=== PATIENT | male | born 1950 | race Caucasian/White ===

== ENCOUNTER 2016-10-08 08:15 | Day surgery (SDC) | payer MEDICARE ==
[~2016-10-08 08:15] MED LIST: LACTATED RINGERS 1,000 ML IV SCH
[2016-10-08] MEDS ORDERED: IV START KIT ONE (09:04)
[2016-10-08] MEDS ORDERED: LACTATED RINGERS 1,000 ML ONE (09:04)
[2016-10-08] MEDS ORDERED: FENTANYL 5 ML ONE (10:05)
[2016-10-08] MEDS ORDERED: PROPOFOL 20 ML IV ONE (10:05)
--- NOTE | 2016-10-12 12:55 | SURGPATH ---
[facility] [address] [place] [id number] Patient Name: DUKE SIMS MR#: [id number] : 1950 Gender: M Specimen #: [id number] Collected: 10/08/2016 Received: 10/09/2016 Reported: 10/12/2016 Submitting Phys: ART HANEY Copy To Phys: [facility] EREN JEAN Clinical History / Pre-Operative Diagnosis: SCREENING Specimen Source / Surgical Procedure Performed: SIGMOID POLYP AT 20 CM X2 Interpretation: SIGMOID COLON, 20 CM, POLYP, POLYPECTOMY: - HYPERPLASTIC POLYP Electronically Signed Out Wendy Oconnor M.D. Gross Description: The specimen is received in a formalin filled container labeled with the patient's name and "sigmoid polyp at 20 cm". Two polypoid red-keller biopsies are 0.3 and 0.5 cm. Totally embedded in one cassette. Cristhian Ayoub, PKobeAKobe Microscopic Description: Two fragments of colonic mucosa are seen, one of which shows a hyperplastic polyp on deeper levels. No dysplasia or horizontally oriented crypts are seen. Focal active inflammation is seen in the superficial epithelium. 1: [id number] K63.5
== END 2016-10-08 11:40 | disposition home or self-care (01) ==
LOC: SDC 08:15
PROVIDERS: ATTEND Internal Medicine Gastroenterology
PROC: 0DBN8ZX Excision of Sigmoid Colon, Via Natural or Artificial Opening Endoscopic, Diagnostic (ICD-10-PCS; principal; 2016-10-08)
DX: Z12.11 Encounter for screening for malignant neoplasm of colon (principal); D12.5 Benign neoplasm of sigmoid colon; I25.10 Atherosclerotic heart disease of native coronary artery without angina pectoris; I11.9 Hypertensive heart disease without heart failure; I50.9 Heart failure, unspecified; E11.9 Type 2 diabetes mellitus without complications; E78.5 Hyperlipidemia, unspecified; G47.33 Obstructive sleep apnea (adult) (pediatric); Z79.84 Long term (current) use of oral hypoglycemic drugs